=== PATIENT | male | born 1960 ===

== ENCOUNTER → 2017-02-16 | Outpatient (CLI) | payer OTHER ==
--- NOTE | 2017-02-16 17:01 | XR ---
EXAMINATION TYPE: XR elbow complete RT DATE OF EXAM: 02/16/2017 4:57 PM CLINICAL HISTORY: Smashing injury with right elbow pain. TECHNIQUE: Frontal, lateral and oblique images of the right elbow are obtained. COMPARISON: None FINDINGS: There is no acute fracture/dislocation evident in the right elbow. No abnormal fat pad si gns are seen. Some spurring at ulnohumeral articulation is present. The overlying soft tissue appear s unremarkable. IMPRESSION: There is no acute fracture or dislocation in the right elbow.
== END | disposition home or self-care (01) ==
LOC: RADXRMAIN 16:47
PROVIDERS: ATTEND Emergency Medicine
DX: S50.01XA Contusion of right elbow, initial encounter (principal); M70.21 Olecranon bursitis, right elbow

== ENCOUNTER 2017-08-01 22:07 | Emergency (ER) | payer OTHER ==
[2017-08-01 22:12] VITALS: BP 155/78; PULSE 78; RESP 20; TEMP 98.2
--- NOTE | 2017-08-01 22:39 | ED ---
General Adult HPI - General Chief complaint: Skin/Abscess/Foreign Body Stated complaint: Fish hook R hand Time Seen by Provider: 08/01/17 22:20 Source: patient, RN notes reviewed Mode of arrival: ambulatory Limitations: no limitations - History of Present Illness Initial comments: Patient is a 57-year-old male presents emergency room today with a chief complaint of fishhook stuck the right index finger. Patient states tetanus is up-to-date. Denies any other complaints or symptoms. Patient denies any recent fever, chills, shortness of breath, chest pain, back pain, abdominal pain, nausea or vomiting, numbness or tingling, dysuria or hematuria, constipation or diarrhea, headaches or visual changes, or any other complaints. - Related Data Home Medications Medication Instructions Recorded Confirmed Losartan [Cozaar] 50 mg PO DAILY 09/08/16 08/01/17 Previous Rx's Medication Instructions Recorded Amoxicillin/Potassium Clav 1 each PO Q12HR #14 tab 08/01/17 [Augmentin 875-125 Tablet] Allergies Allergy/AdvReac Type Severity Reaction Status Date / Time No Known Allergies Allergy Verified 08/01/17 22:12 Review of Systems ROS Statement: Those systems with pertinent positive or pertinent negative responses have been documented in the HPI. ROS Other: All systems not noted in ROS Statement are negative. Past Medical History Past Medical History: Hypertension History of Any Multi-Drug Resistant Organisms: None Reported Past Surgical History: Tonsillectomy Additional Past Surgical History / Comment(s): cyst removal from back Past Psychological History: No Psychological Hx Reported Smoking Status: Current every day smoker Past Alcohol Use History: None Reported Past Drug Use History: Marijuana General Exam - General Exam Comments Initial Comments: General: The patient is awake and alert, in no distress, and does not appear acutely ill. Eye: Pupils are equal, round and reactive to light, extra-ocular movements are intact. No nystagmus. There is normal conjunctiva bilaterally. No signs of icterus. Ears, nose, mouth and throat: There are moist mucous membranes and no oral lesions. Neck: The neck is supple, there is no tenderness or JVD. Cardiovascular: There is a regular rate and rhythm. No murmur, rub or gallop is appreciated. Respiratory: Lungs are clear to auscultation, respirations are non-labored, breath sounds are equal. No wheezes, stridor, rales, or rhonchi. Musculoskeletal: Normal ROM, no tenderness. Strength 5/5. Sensation intact. Pulses equal bilaterally 2+. Neurological: A&O x 3. CN II-XII intact, There are no obvious motor or sensory deficits. Coordination appears grossly intact. Speech is normal. Skin: [place] stuck to the distal aspect of the second digit of the right hand. Psychiatric: Cooperative, appropriate mood & affect, normal judgment. Limitations: no limitations Course Vital Signs 08/01/17 22:11 Temperature 98.2 F Pulse Rate 78 Respiratory 20 Rate Blood Pressure 155/78 O2 Sat by Pulse 98 Oximetry Procedures - Procedures Initial comment: Patient's right index finger was anesthetized at the proximal phalanx. [place] was removed by pushing barbs through and able to grab and remove the fishhook. Patient tolerated procedure well. Medical Decision Making - Medical Decision Making Patient's tetanus is up-to-date. He will be provided a antibiotic to use for infection. Advised to return for any other concerns. Disposition Clinical Impression: [place] injury to finger Disposition: HOME SELF-CARE Condition: Good Instructions: Puncture Wound (ED) Additional Instructions: Please use antibiotic as prescribed Motrin any signs of infection. Please return to emergency room for any other concerns. Prescriptions: Amoxicillin/Potassium Clav [Augmentin 875-125 Tablet] 1 each PO Q12HR #14 tab Referrals: Ketan Marie MD [Primary Care Provider] - 1-2 days Time of Disposition: 22:41
== END 2017-08-01 22:46 | disposition home or self-care (01) ==
LOC: EC 22:07
DX: S69.91XA Unspecified injury of right wrist, hand and finger(s), initial encounter (principal); I10 Essential (primary) hypertension; F17.200 Nicotine dependence, unspecified, uncomplicated; Z79.899 Other long term (current) drug therapy; W20.8XXA Other cause of strike by thrown, projected or falling object, initial encounter
CPT/HCPCS: 99283

== ENCOUNTER 2018-08-16 19:37 | Emergency (ER) | payer OTHER ==
[2018-08-16 19:54] VITALS: BP 162/89; PULSE 70; RESP 18; TEMP 98.4
[2018-08-16] MEDS ORDERED: HYDROcodone/APAP 5-325MG 1 EACH TAB PO STA (20:16)
[2018-08-16] MEDS ORDERED: ACETAMINOPHEN TAB 325 MG TAB PO STA (20:16)
[2018-08-16] MEDS ORDERED: DEXAMETHASONE 4 MG TAB PO STA (20:16)
[2018-08-16] MEDS ORDERED: KETOROLAC 60 MG/2 ML VIAL IM STA (20:16)
[2018-08-16] MEDS ORDERED: DIAZEPAM 5 MG TAB PO STA (20:16)
--- NOTE | 2018-08-16 20:25 | ED ---
General Adult HPI - General Chief complaint: Back Pain/Injury Stated complaint: back pain Time Seen by Provider: 08/16/18 19:58 Source: patient, RN notes reviewed, old records reviewed Mode of arrival: ambulatory Limitations: no limitations - History of Present Illness Initial comments: This is a 58-year-old male the ER prevention of back pain. No prior history of back pain. Patient did have trauma. Stairs. Significant sprain strain of his back area. Injury happened earlier today coming in the ER today for same evaluation. Patient took no medication prior to coming in. No loss of bowel or bladder no neurological complaint. Patient denies any recent fevers or headaches. - Related Data Home Medications Medication Instructions Recorded Confirmed Acetaminophen Tab [Tylenol Tab] 1,000 mg PO Q6HR PRN 08/16/18 08/16/18 Previous Rx's Medication Instructions Recorded Naproxen [Naprosyn] 500 mg PO Q12HR PRN #30 tab 08/16/18 Allergies Allergy/AdvReac Type Severity Reaction Status Date / Time No Known Allergies Allergy Verified 08/16/18 20:06 Review of Systems ROS Statement: Those systems with pertinent positive or pertinent negative responses have been documented in the HPI. ROS Other: All systems not noted in ROS Statement are negative. Past Medical History Past Medical History: Hypertension History of Any Multi-Drug Resistant Organisms: None Reported Past Surgical History: Tonsillectomy Additional Past Surgical History / Comment(s): cyst removal from back Past Psychological History: No Psychological Hx Reported Smoking Status: Current every day smoker Past Alcohol Use History: None Reported Past Drug Use History: Marijuana General Exam Limitations: no limitations General appearance: alert, in no apparent distress Head exam: Present: atraumatic, normocephalic, normal inspection Eye exam: Present: normal appearance, PERRL, EOMI. Absent: scleral icterus, conjunctival injection, periorbital swelling ENT exam: Present: normal exam, mucous membranes moist Neck exam: Present: normal inspection. Absent: tenderness, meningismus, lymphadenopathy Respiratory exam: Present: normal lung sounds bilaterally. Absent: respiratory distress, wheezes, rales, rhonchi, stridor Cardiovascular Exam: Present: regular rate, normal rhythm, normal heart sounds. Absent: systolic murmur, diastolic murmur, rubs, gallop, clicks GI/Abdominal exam: Present: soft, normal bowel sounds. Absent: distended, tenderness, guarding, rebound, rigid Extremities exam: Present: normal inspection, full ROM, normal capillary refill. Absent: tenderness, pedal edema, joint swelling, calf tenderness Back exam: Present: normal inspection Neurological exam: Present: alert, oriented X3, CN II-XII intact Psychiatric exam: Present: normal affect, normal mood Skin exam: Present: warm, dry, intact, normal color. Absent: rash Course Vital Signs 08/16/18 19:50 Temperature 98.4 F Pulse Rate 70 Respiratory 18 Rate Blood Pressure 162/89 O2 Sat by Pulse 99 Oximetry - Reevaluation(s) Reevaluation #1: Patient's pain is improved and he is able to ambulate Medical Decision Making - Medical Decision Making 58 male the ER for evaluation of acute back pain secondary to lumbar strain secondary to tripping while doing work on the house. Fell while going upstairs. No significant trauma noted. No loss of bowel or bladder neurological complaint. Patient can be discharged home Disposition Clinical Impression: Mechanical back pain, Strain of lumbar region Disposition: HOME SELF-CARE Condition: Good Instructions: Acute Low Back Pain (ED) Prescriptions: Naproxen [Naprosyn] 500 mg PO Q12HR PRN #30 tab PRN Reason: Pain Is patient prescribed a controlled substance at d/c from ED?: No Referrals: Ketan Marie MD [Primary Care Provider] - 1-2 days
[2018-08-16] MEDS ORDERED: ACET/COD 300 MG/30 MG STARTER PACK 6 TAB BTL PO STA (20:27)
== END 2018-08-16 20:39 | disposition home or self-care (01) ==
LOC: EC 19:37
DX: S39.012A Strain of muscle, fascia and tendon of lower back, initial encounter (principal); F17.200 Nicotine dependence, unspecified, uncomplicated; W10.9XXA Fall (on) (from) unspecified stairs and steps, initial encounter; Y93.89 Activity, other specified; Y92.009 Unspecified place in unspecified non-institutional (private) residence as the place of occurrence of the external cause
CPT/HCPCS: 99284; 96372; J8540; J1885

== ENCOUNTER 2019-02-16 20:34 | Emergency (ER) | payer OTHER ==
[2019-02-16 20:43] VITALS: RESP 18
[2019-02-16 21:52] LABS: Basophils # (A) 0.1 k/uL (0-0.2); Basophils % (A) 1 %; Eosinophils # (A) 0.3 k/uL (0-0.7); Eosinophils % (A) 3 %; HCT 43.5 % (39.0-53.0); HGB 14.4 gm/dL (13.0-17.5); Lymphocytes # (A) 1.6 k/uL (1.0-4.8); Lymphocytes % (A) 22 %; MCV 87.9 fL (80.0-100.0); Mean Platelet Volume 6.6; Monocytes # (A) 0.4 k/uL (0-1.0); Monocytes % (A) 5 %; Neutrophils # (A) 5.2 k/uL (1.3-7.7); Neutrophils % (A) 68 %; Platelet Count 259 k/uL (150-450); RBC 4.95 m/uL (4.30-5.90); RDW 13.4 % (11.5-15.5); WBC 7.6 k/uL (3.8-10.6)
[2019-02-16 22:02] LABS: ALT 26 U/L (21-72); AST 26 U/L (17-59); Albumin 4.3 g/dL (3.5-5.0); Alkaline Phosphatase 96 U/L (38-126); Amylase 47 U/L (30-110); Anion Gap 8 mmol/L; Blood Urea Nitrogen 19 mg/dL (9-20); Calcium 9.2 mg/dL (8.4-10.2); Carbon Dioxide 26 mmol/L (22-30); Chloride 106 mmol/L (98-107); Glucose 97 mg/dL (74-99); Lipase 102 U/L (23-300); Potassium 4.3 mmol/L (3.5-5.1); Sodium 140 mmol/L (137-145); Total Bilirubin 0.8 mg/dL (0.2-1.3); Total Protein 6.9 g/dL (6.3-8.2)
[2019-02-16 22:08] LABS: Appearance,Urine Clear (Clear); Bilirubin,Urine Negative (Negative); Blood,Urine Negative (Negative); Color,Urine Yellow; Glucose,Urine (UA) Negative (Negative); Ketones,Urine Negative (Negative); Leukocyte Esterase,Urine Negative (Negative); Nitrite,Urine Negative (Negative); Protein,Urine Negative (Negative); Specific Gravity,Urine 1.041 (1.001-1.035); Urobilinogen,Urine <2.0 mg/dL (<2.0)
--- NOTE | 2019-02-16 23:29 | ED ---
Abdominal Pain HPI - General Source: patient Mode of arrival: ambulatory Limitations: no limitations <Violet Bee - Last Filed: 02/16/19 23:58> <Kenya Sylvester - Last Filed: 02/17/19 02:36> - General Chief Complaint: Abdominal Pain Stated Complaint: R Side Pain Time Seen by Provider: 02/16/19 20:53 - History of Present Illness Initial Comments: 58-year-old male past medical history of hypertension presenting today for chief complaint of right lower quadrant pain. Patient states around 10 AM he began ex periencing right lower quadrant abdominal pain, pt was sitting at home at the time when symptoms began. Patient states he has had similar pain before a few months ago he states it lasted for few hours and then went away. Denies diarrhea or vomiting nausea decreased appetite. He states the pain is sharp in characteristic without radiation. He states it comes and goes. Denies melena or hematochezia he denies fever or chills testicular pain, dysuria urgency frequency, history of hernia or recent abdominal surgeries. He denies a chest pain dyspnea despite exertion. Patient denies any associated symptoms, remaining review of systems negative. Patient denies any alleviating factors. He states it does increase with any of the abdomen. Patient denies any increased pain with ambulation. (Violet Bee) - Related Data Home Medications Medication Instructions Recorded Confirmed Losartan Potassium 100 mg PO DAILY 02/16/19 02/16/19 Allergies Allergy/AdvReac Type Severity Reaction Status Date / Time No Known Allergies Allergy Verified 02/16/19 21:09 Review of Systems ROS Other: All systems not noted in ROS Statement are negative. <Violet Bee - Last Filed: 02/16/19 23:58> ROS Other: All systems not noted in ROS Statement are negative. <Kenya Sylvester - Last Filed: 02/17/19 02:36> ROS Statement: Those systems with pertinent positive or pertinent negative responses have been documented in the HPI. Past Medical History Past Medical History: Hypertension History of Any Multi-Drug Resistant Organisms: None Reported Past Surgical History: Tonsillectomy Additional Past Surgical History / Comment(s): cyst removal from back Past Psychological History: No Psychological Hx Reported Smoking Status: Current every day smoker Past Alcohol Use History: None Reported Past Drug Use History: Marijuana <Violet Bee - Last Filed: 02/16/19 23:58> General Exam Limitations: no limitations <Yoanna Beehan Sander - Last Filed: 02/16/19 23:58> - General Exam Comments Initial Comments: General: The patient is awake and alert, in no distress, and does not appear acutely ill. Eye: Pupils are equal, round and reactive to light, extra-ocular movements are intact. No nystagmus. There is normal conjunctiva bilaterally. No signs of icterus. Ears, nose, mouth and throat: There are moist mucous membranes and no oral lesions. Neck: The neck is supple, there is no tenderness or JVD. Cardiovascular: There is a regular rate and rhythm. No murmur, rub or gallop is appreciated. Respiratory: Lungs are clear to auscultation, respirations are non-labored, breath sounds are equal. No wheezes, stridor, rales, or rhonchi. Gastrointestinal: No noted diaphoresis, jaundice, pallor, protecting postures or squirming. Symmetrical pigmentation of abdomen without signs of inflammation. Umbilicus mildline, inverted without swelling. No dilated veins. Abdomen contour obese, no noted abdominal distention. No visible masses. No peristalsis, aortic pulsations, or ventral hernia. Bowel sounds audible in all 4 quadrants, unremarkable. No friction rubs or venous hums. No epigastic, hepatic or abdominal bruits. Mild tenderness to the patient the right lower quadrant. Remaining abdomen nontender to both light and deep palpation.. Liver edge, not palpable. Spleen edge, right and left kidney not palpable. Superior bladder margin non-tender. Special Testing: Negative Zoe, Rovsing, McBurney, Jeannine, cutaneous hyperesthesia. Iliopsoas and obturator tests negative bilaterally. Negative Heel Jar test. No CVA tenderness. Digital rectal exam deferred. Negative clemente turners or cullens sign Musculoskeletal: Normal ROM, no tenderness. Strength 5/5. Sensation intact. Pulses equal bilaterally 2+. Neurological: A&O x 3. CN II-XII intact, There are no obvious motor or sensory deficits. Coordination appears grossly intact. Speech is normal. Skin: Skin is warm and dry and no rashes or lesions are noted. Psychiatric: Cooperative, appropriate mood & affect, normal judgment. (Violet Bee) Course <Violet Bee - Last Filed: 02/16/19 23:58> Vital Signs 02/16/19 02/16/19 02/16/19 20:40 22:16 23:43 Temperature 98.5 F 98 F Pulse Rate 70 75 66 Respiratory 18 18 18 Rate Blood Pressure 158/85 151/94 150/91 O2 Sat by Pulse 96 98 97 Oximetry - Reevaluation(s) Reevaluation #1: Upon reevaluation patient has no RLQ pain, resolved. 02/16/19 23:28 (Violet Bee) Medical Decision Making - Lab Data Result diagrams: 02/16/19 21:42 02/16/19 21:42 <Violet Bee - Last Filed: 02/16/19 23:58> - Lab Data Result diagrams: 02/16/19 21:42 02/16/19 21:42 <Kenya Sylvester - Last Filed: 02/17/19 02:36> - Medical Decision Making Appearing 58-year-old male presented for right lower quadrant abdominal pain. Patient has multiple facial right lower quadrant. Patient denies any associated symptoms. No rigidity guarding. Given patient's age and location of pain concern for possible diverticulosis. CT was obtained revealing no acute intra- abdominal process at this time. There was noted umbilical hernia however there is no point tenderness upon abdominal exam in this location. Laboratory studies unremarkable within normal limits. Patient's vital signs within acceptable limits. Patient states upon reevaluation that pain has resolved. At this time I do feel patient stay for discharge with return parameters for any worsening or concerning symptoms. I discussed case attending provider Dr. Sylvester was agreeable patient's plan of care and discharge. Patient denies questions at this time. Appeared well on discharge ambulating without difficulty no signs of discomfort distress. (Violet Bee) I was available for consultation in the emergency department. The history and physical exam were done by the midlevel provider. I was consulted for this patient's care. I reviewed the case with the midlevel provider and based on their presentation of the patient, I agree with the assessment, medical decision making and plan of care as documented. (Kenya Sylvester) - Lab Data Lab Results 02/16/19 02/16/19 02/16/19 Range/Units 21:42 21:42 21:58 WBC 7.6 (3.8-10.6) k/uL RBC 4.95 (4.30-5.90) m/uL Hgb 14.4 (13.0-17.5) gm/dL Hct 43.5 (39.0-53.0) % MCV 87.9 (80.0-100.0) fL MCH 29.0 (25.0-35.0) pg MCHC 33.0 (31.0-37.0) g/dL RDW 13.4 (11.5-15.5) % Plt Count 259 (150-450) k/uL Neutrophils % 68 % Lymphocytes % 22 % Monocytes % 5 % Eosinophils % 3 % Basophils % 1 % Neutrophils # 5.2 (1.3-7.7) k/uL Lymphocytes # 1.6 (1.0-4.8) k/uL Monocytes # 0.4 (0-1.0) k/uL Eosinophils # 0.3 (0-0.7) k/uL Basophils # 0.1 (0-0.2) k/uL Sodium 140 (137-145) mmol/L Potassium 4.3 (3.5-5.1) mmol/L Chloride 106 (98-107) mmol/L Carbon Dioxide 26 (22-30) mmol/L Anion Gap 8 mmol/L BUN 19 (9-20) mg/dL Creatinine 0.82 (0.66-1.25) mg/dL Est GFR (CKD-EPI)AfAm >90 (>60 ml/min/1.73 sqM) Est GFR (CKD-EPI)NonAf >90 (>60 ml/min/1.73 sqM) Glucose 97 (74-99) mg/dL Calcium 9.2 (8.4-10.2) mg/dL Total Bilirubin 0.8 (0.2-1.3) mg/dL AST 26 (17-59) U/L ALT 26 (21-72) U/L Alkaline Phosphatase 96 (38-126) U/L Total Protein 6.9 (6.3-8.2) g/dL Albumin 4.3 (3.5-5.0) g/dL Amylase 47 (30-110) U/L Lipase 102 (23-300) U/L Urine Color Yellow Urine Appearance Clear (Clear) Urine pH 6.0 (5.0-8.0) Ur Specific [place] 1.041 H (1.001-1.035) Urine Protein Negative (Negative) Urine Glucose (UA) Negative (Negative) Urine Ketones Negative (Negative) Urine Blood Negative (Negative) Urine Nitrite Negative (Negative) Urine Bilirubin Negative (Negative) Urine Urobilinogen <2.0 (<2.0) mg/dL Ur Leukocyte Esterase Negative (Negative) Disposition Is patient prescribed a controlled substance at d/c from ED?: No Time of Disposition: 23:29 <Violet Bee - Last Filed: 02/16/19 23:58> <Kenya Sylvester P - Last Filed: 02/17/19 02:36> Clinical Impression: Abdominal pain Disposition: HOME SELF-CARE Condition: Good Instructions (If sedation given, give patient instructions): Abdominal Pain (ED) Additional Instructions: Please use medication as discussed. Please follow-up with family doctor in the next 2 days of symptoms have not improved. Please return to emergency room if the symptoms increase or worsen or for any other concerns. Referrals: Ketan Marie MD [Primary Care Provider] - 1-2 days
[2019-02-16 23:44] VITALS: BP 150/91; PULSE 66; TEMP 98
--- NOTE | 2019-02-17 00:44 | CT ---
EXAMINATION TYPE: CT abdomen pelvis w con DATE OF EXAM: 02/16/2019 COMPARISON: None HISTORY: Abdominal pain CT DLP: mGycm Automated exposure control for dose reduction was used. TECHNIQUE: Helical acquisition of images was performed from the lung bases through the pelvis. CONTRAST: The contrast was Isovue 100 mL.. FINDINGS: Lung bases are clear. There is no pleural effusion. Heart size is normal. Liver spleen pancreas gallb ladder stomach appear normal. Bile ducts are not dilated. There is no adrenal mass. Kidneys show sati sfactory contrast opacification. There is no hydronephrosis. There is no retroperitoneal adenopathy. Bladder distends smoothly. There is minimal prostate calcification. There is no inguinal hernia. Ther e is no free fluid in the pelvis. There is no mesenteric edema. There is no free air or ascites. The appendix appears normal. I see no evidence of a bowel obstruction. Lumbar spine is intact. There is no bony destructive process. There is minimal atheromatous change in the abdominal aorta. IMPRESSION: NEGATIVE CT SCAN ABDOMEN AND PELVIS.
== END 2019-02-16 23:43 | disposition home or self-care (01) ==
LOC: EC 20:34
DX: K42.9 Umbilical hernia without obstruction or gangrene (principal); I10 Essential (primary) hypertension; F17.200 Nicotine dependence, unspecified, uncomplicated; Z79.899 Other long term (current) drug therapy
CPT/HCPCS: 36415; 80053; 82150; 83690; 85025; 81003; 74177; 99284; Q9967

== ENCOUNTER 2019-07-25 18:01 | Emergency (ER) | payer OTHER ==
[2019-07-25 18:05] VITALS: RESP 18
[2019-07-25] MEDS ORDERED: SODIUM CHLORIDE 0.9% 1,000 ML IV STA (18:30)
--- NOTE | 2019-07-25 18:55 | ED ---
General Adult HPI - General Chief complaint: Recheck/Abnormal Lab/Rx Stated complaint: Coughing up blood, syncope Time Seen by Provider: 07/25/19 18:19 Source: patient Mode of arrival: ambulatory Limitations: no limitations - History of Present Illness Initial comments: 59-year-old male patient presents to the emergency department today for evaluation after coughing up blood this afternoon. Patient states that earlier today he had a coughing episode. It was productive and contained streaks of blood. He denied any shortness of breath or chest pain with this. Denies history of hemoptysis. States that he has a chronic cough from smoking. Patient states that yesterday he was riding his bike, when he went to get off he felt very dizzy and nearly passed out. States these cluster of symptoms concerned him and he presented here for evaluation. Patient states the bleeding has stopped. States otherwise he feels well. Patient denies any recent rash, fever, chills, abdominal pain, nausea, vomiting, diarrhea, constipation, back pain, numbness, tingling, dizziness, weakness, hematuria, dysuria, urinary urgency, urinary frequency, headache, visual changes, or any other complaints. He denies any recent long car rides, history of blood clots, or leg pain or swelling. - Related Data Home Medications Medication Instructions Recorded Confirmed Losartan Potassium 100 mg PO DAILY 02/16/19 07/25/19 Aspirin EC [Ecotrin Low Dose] 81 mg PO DAILY 07/25/19 07/25/19 Allergies Allergy/AdvReac Type Severity Reaction Status Date / Time No Known Allergies Allergy Verified 07/25/19 18:40 Review of Systems ROS Statement: Those systems with pertinent positive or pertinent negative responses have been documented in the HPI. ROS Other: All systems not noted in ROS Statement are negative. Past Medical History Past Medical History: Hypertension History of Any Multi-Drug Resistant Organisms: None Reported Past Surgical History: Tonsillectomy Additional Past Surgical History / Comment(s): cyst removal from back Past Psychological History: No Psychological Hx Reported Smoking Status: Current every day smoker Past Alcohol Use History: None Reported Past Drug Use History: Marijuana General Exam Limitations: no limitations General appearance: alert, in no apparent distress, other (This is a well- developed, well-nourished adult male patient in no acute distress. Vital signs upon presentation are temperature 98.3F, pulse 74, respirations 18, blood pressure 155/95, pulse ox 99% on room air.) Eye exam: Present: normal appearance, PERRL, EOMI. Absent: scleral icterus, conjunctival injection, periorbital swelling ENT exam: Present: normal exam, normal oropharynx, mucous membranes moist Respiratory exam: Present: normal lung sounds bilaterally. Absent: respiratory distress, wheezes, rales, rhonchi, stridor Cardiovascular Exam: Present: regular rate, normal rhythm, normal heart sounds. Absent: systolic murmur, diastolic murmur, rubs, gallop, clicks GI/Abdominal exam: Present: soft, normal bowel sounds. Absent: distended, tenderness, guarding, rebound, rigid Neurological exam: Present: alert, oriented X3, CN II-XII intact Psychiatric exam: Present: normal affect, normal mood Skin exam: Present: warm, dry, intact, normal color. Absent: rash Course Vital Signs 07/25/19 07/25/19 18:03 20:50 Temperature 98.3 F 97.8 F Pulse Rate 74 66 Respiratory 18 18 Rate Blood Pressure 155/95 172/96 O2 Sat by Pulse 99 97 Oximetry EKG Findings - EKG Comments: EKG Findings:: EKG obtained at 1920 shows sinus bradycardia with a ventricular rate of 53, W[place] interval 144, QRS duration 98, QT 426, QTC 399. No evidence of ST elevation or depression. Medical Decision Making - Medical Decision Making 59-year-old male patient presents to the emergency department today for evaluation after having an episode of hemoptysis today and a near syncopal ep isode yesterday. Physical examination is unremarkable. Lungs are clear to auscultation with good air movement. Vital signs are within normal ranges. Labs reviewed and are unremarkable. D-dimer is negative. Chest x-ray shows no acute cardiopulmonary process. I did discuss findings and results with the patient. He is currently feeling well. He does feel comfortable being discharged home. He is instructed to follow-up with his primary care physician for recheck in 1-2 days. Return parameters were discussed in detail. He verbalizes understanding and agrees with this plan. - Lab Data Result diagrams: 07/25/19 18:47 07/25/19 18:47 Lab Results 07/25/19 07/25/19 07/25/19 Range/Units 18:47 18:47 18:47 WBC 8.5 (3.8-10.6) k/uL RBC 5.15 (4.30-5.90) m/uL Hgb 15.2 (13.0-17.5) gm/dL Hct 45.6 (39.0-53.0) % MCV 88.5 (80.0-100.0) fL MCH 29.5 (25.0-35.0) pg MCHC 33.3 (31.0-37.0) g/dL RDW 13.4 (11.5-15.5) % Plt Count 255 (150-450) k/uL Neutrophils % 67 % Lymphocytes % 22 % Monocytes % 7 % Eosinophils % 2 % Basophils % 1 % Neutrophils # 5.7 (1.3-7.7) k/uL Lymphocytes # 1.9 (1.0-4.8) k/uL Monocytes # 0.6 (0-1.0) k/uL Eosinophils # 0.2 (0-0.7) k/uL Basophils # 0.1 (0-0.2) k/uL PT 9.8 (9.0-12.0) sec INR 0.9 (<1.2) APTT 27.3 (22.0-30.0) sec D-Dimer 0.51 (<0.60) mg/L FEU Sodium 140 (137-145) mmol/L Potassium 4.4 (3.5-5.1) mmol/L Chloride 103 (98-107) mmol/L Carbon Dioxide 28 (22-30) mmol/L Anion Gap 9 mmol/L BUN 19 (9-20) mg/dL Creatinine 0.93 (0.66-1.25) mg/dL Est GFR (CKD-EPI)AfAm >90 (>60 ml/min/1.73 sqM) Est GFR (CKD-EPI)NonAf 89 (>60 ml/min/1.73 sqM) Glucose 101 H (74-99) mg/dL Calcium 9.7 (8.4-10.2) mg/dL Total Bilirubin 0.8 (0.2-1.3) mg/dL AST 27 (17-59) U/L ALT 23 (21-72) U/L Alkaline Phosphatase 95 (38-126) U/L Troponin I (0.000-0.034) ng/mL Total Protein 7.5 (6.3-8.2) g/dL Albumin 4.6 (3.5-5.0) g/dL 07/25/19 Range/Units 18:47 WBC (3.8-10.6) k/uL RBC (4.30-5.90) m/uL Hgb (13.0-17.5) gm/dL Hct (39.0-53.0) % MCV (80.0-100.0) fL MCH (25.0-35.0) pg MCHC (31.0-37.0) g/dL RDW (11.5-15.5) % Plt Count (150-450) k/uL Neutrophils % % Lymphocytes % % Monocytes % % Eosinophils % % Basophils % % Neutrophils # (1.3-7.7) k/uL Lymphocytes # (1.0-4.8) k/uL Monocytes # (0-1.0) k/uL Eosinophils # (0-0.7) k/uL Basophils # (0-0.2) k/uL PT (9.0-12.0) sec INR (<1.2) APTT (22.0-30.0) sec D-Dimer (<0.60) mg/L FEU Sodium (137-145) mmol/L Potassium (3.5-5.1) mmol/L Chloride (98-107) mmol/L Carbon Dioxide (22-30) mmol/L Anion Gap mmol/L BUN (9-20) mg/dL Creatinine (0.66-1.25) mg/dL Est GFR (CKD-EPI)AfAm (>60 ml/min/1.73 sqM) Est GFR (CKD-EPI)NonAf (>60 ml/min/1.73 sqM) Glucose (74-99) mg/dL Calcium (8.4-10.2) mg/dL Total Bilirubin (0.2-1.3) mg/dL AST (17-59) U/L ALT (21-72) U/L Alkaline Phosphatase (38-126) U/L Troponin I <0.012 (0.000-0.034) ng/mL Total Protein (6.3-8.2) g/dL Albumin (3.5-5.0) g/dL - Radiology Data Radiology results: report reviewed, image reviewed Two-view x-ray of the chest is obtained. Report was reviewed in its entirety. Impression by Dr. Vazquez shows no acute radiographic process. Disposition Clinical Impression: Hemoptysis, Near syncope Disposition: HOME SELF-CARE Condition: Good Instructions (If sedation given, give patient instructions): Hemoptysis (ED), Near Syncope (ED) Additional Instructions: Increase fluids. Rest. Follow-up she primary care physician for recheck in 1-2 days. Return to the emergency department immediately for any new, worsening, or concerning symptoms. Is patient prescribed a controlled substance at d/c from ED?: No Referrals: Ketan Marie MD [Primary Care Provider] - 1-2 days Time of Disposition: 20:23
[2019-07-25 18:56] LABS: Basophils # (A) 0.1 k/uL (0-0.2); Basophils % (A) 1 %; Eosinophils # (A) 0.2 k/uL (0-0.7); Eosinophils % (A) 2 %; HCT 45.6 % (39.0-53.0); HGB 15.2 gm/dL (13.0-17.5); Lymphocytes # (A) 1.9 k/uL (1.0-4.8); Lymphocytes % (A) 22 %; MCH 29.5 pg (25.0-35.0); MCHC 33.3 g/dL (31.0-37.0); MCV 88.5 fL (80.0-100.0); Mean Platelet Volume 6.6; Monocytes # (A) 0.6 k/uL (0-1.0); Monocytes % (A) 7 %; Neutrophils # (A) 5.7 k/uL (1.3-7.7); Neutrophils % (A) 67 %; Platelet Count 255 k/uL (150-450); RBC 5.15 m/uL (4.30-5.90); RDW 13.4 % (11.5-15.5); WBC 8.5 k/uL (3.8-10.6)
[2019-07-25 19:04] LABS: ALT 23 U/L (21-72); AST 27 U/L (17-59); African American GFR (CKD) >90 (>60 ml/min/1.73 sqM); Albumin 4.6 g/dL (3.5-5.0); Alkaline Phosphatase 95 U/L (38-126); Anion Gap 9 mmol/L; Blood Urea Nitrogen 19 mg/dL (9-20); Calcium 9.7 mg/dL (8.4-10.2); Carbon Dioxide 28 mmol/L (22-30); Chloride 103 mmol/L (98-107); Glucose 101 mg/dL (74-99); Potassium 4.4 mmol/L (3.5-5.1); Sodium 140 mmol/L (137-145); Total Bilirubin 0.8 mg/dL (0.2-1.3); Total Protein 7.5 g/dL (6.3-8.2)
[2019-07-25 19:13] LABS: D-Dimer 0.51 mg/L FEU (<0.60); INR 0.9 (<1.2); Partial Thromboplastin Time 27.3 sec (22.0-30.0); Prothrombin Time 9.8 sec (9.0-12.0)
--- NOTE | 2019-07-25 19:49 | XR ---
EXAMINATION: XR chest 2V DATE AND TIME: 07/25/2019 6:59 PM CLINICAL INDICATION: Hemoptysis; difficulty breathing TECHNIQUE: Departmental protocol COMPARISON: 09/08/2016 FINDINGS: The lungs are clear. The pleural spaces are negative. The cardiac silhouette is not enlarged. The remainder of the mediastinal silhouette is unremarkable. The skeletal structures and soft tissues are negative for acute findings. IMPRESSION: No acute radiographic process.
[2019-07-25 20:50] VITALS: BP 172/96; PULSE 66; TEMP 97.8
== END 2019-07-25 20:50 | disposition home or self-care (01) ==
LOC: EC 18:01
DX: R55 Syncope and collapse (principal); R04.2 Hemoptysis; I10 Essential (primary) hypertension; F17.200 Nicotine dependence, unspecified, uncomplicated; Z79.82 Long term (current) use of aspirin; Z79.899 Other long term (current) drug therapy
CPT/HCPCS: 36415; 71046; 80053; 84484; 85025; 85379; 85610; 85730; 93005; 96360; 96361; 99284

== ENCOUNTER → 2019-08-01 | Outpatient (CLI) | payer OTHER ==
[2019-08-01 17:59] LABS: Chol/HDL Ratio 5.78
[2019-08-01 21:20] LABS: Hemoglobin A1C 5.6 % (4.0-6.0)
== END | disposition home or self-care (01) ==
LOC: LABWHC1 08:42
PROVIDERS: ATTEND Family Medicine
DX: Z00.00 Encounter for general adult medical examination without abnormal findings (principal); Z12.5 Encounter for screening for malignant neoplasm of prostate
CPT/HCPCS: 80061; 83036; 36415; G0103

== ENCOUNTER → 2019-08-15 | Outpatient (CLI) | payer OTHER ==
--- NOTE | 2019-08-15 10:07 | US ---
EXAMINATION TYPE: US carotid duplex BILAT DATE OF EXAM: 08/15/2019 COMPARISON: NONE CLINICAL HISTORY: R00.2 Palpitations, R55 Syncope. Syncope EXAM MEASUREMENTS: RIGHT: Peak Systolic Velocity (PSV) cm/sec ----- Right CCA: 77.8 ----- Right ICA: 93.0 ----- Right ECA: 168.8 ICA/CCA ratio: 1.2 RIGHT: End Diastole cm/sec ----- Right CCA: 27.3 ----- Right ICA: 36.1 ----- Right ECA: 36.7 LEFT: Peak Systolic Velocity (PSV) cm/sec ----- Left CCA: 91.9 ----- Left ICA: 95.8 ----- Left ECA: 131.9 ICA/CCA ratio: 1.0 LEFT: End Diastole cm/sec ----- Left CCA: 34.7 ----- Left ICA: 38.6 ----- Left ECA: 43.0 VERTEBRALS (direction of flow): Right Vertebral: Antegrade Left Vertebral: Antegrade Rhythm: Normal Elevated velocities in bilateral ECA. IMPRESSION: Mild degree of grayscale atheromatous plaquing with no sonographically evident hemodynam ically significant stenosis within either visualized internal nor common carotid arterial system. Inc identally noted elevated peak systolic velocity within the external carotid arteries, likely related to mild stenosis of approximately 50-69%. Criteria for Assigning % of Stenosis / Diameter reduction (Estimation based on the indirect measurements of the internal carotid artery velocities (ICA PSV). 1. Normal (no stenosis)=ICA PSV < 125 cm/s: ratio < 2.0: ICA EDV<40 cm/s. 2. Less than 50% stenosis=ICA PSV < 125 cm/s: ratio < 2.0: ICA EDV<40 cm/s. 3. 50 to 69% stenosis=ICA PSV of 125 to 230 cm/s: ration 2.0 ? 4.0: ICA EDV 40-100 cm/s. 4. Greater than 70% stenosis to near occlusion= ICA PSV > 230 cm/s: ratio > 4.0: ICA EDV > 100 cm/s. 5. Near occlusion= ICA PSV velocities may be low or undetectable: variable ratio and ICA EDV. 6. Total occlusion=unable to detect flow.
--- NOTE | 2019-08-15 12:36 | ECHOS ---
STRESS ECHOCARDIOGRAM DATE OF SERVICE: 08/15/2019 INDICATIONS: Vertigo MEDICATIONS: BASELINE HEART RATE: 52 BASELINE BLOOD PRESSURE: 152/56 MAXIMUM HEART RATE: 150 MAXIMUM BLOOD PRESSURE: 135/92 85% MPHR: 136 100% MPHR: 160 METS: 9.5 MAXIMUM STAGE REACHED: III TOTAL EXERCISE TIME: 8 minutes 9 seconds CLINICAL INFORMATION: Baseline rhythm is sinus mechanism, rate of 52, normal axis and intervals. Normal electrocardiogram. Baseline blood pressure 152/56 mmHg. The patient exercised on Thomas protocol for 8 minutes 9 seconds, reaching a peak rate of 150 beats per minute which is equal to 94% maximum predicted heart rate. Peak blood pressure 135/92 mmHg. Test was terminated secondary to fatigue. There was no chest pain. Electrocardiograph monitoring revealed no evidence of diagnostic ischemic ST deviation. Baseline echocardiogram revealed normal wall thickening and motion. At peak exercise, there was normal wall motion augmentation with no dyskinesis or hypokinesis. CONCLUSION: 1. Average exercise tolerance with normal electrocardiograph response to exercise. 2. Normal stress echocardiogram with no evidence of stress induced ischemia. MMODL / IJN: [id number] /
== END | disposition home or self-care (01) ==
LOC: RADUSMAIN 08:57
PROVIDERS: ATTEND Family Medicine
DX: I65.23 Occlusion and stenosis of bilateral carotid arteries (principal); R00.2 Palpitations
CPT/HCPCS: 93351; 93880; Q9950

== ENCOUNTER → 2019-08-18 | Outpatient (CLI) | payer OTHER ==
--- NOTE | 2019-08-18 16:25 | MR ---
EXAMINATION TYPE: MR brain wo/w con DATE OF EXAM: 08/18/2019 COMPARISON: None HISTORY: Syncope and collapse CONTRAST: Performed utilizing 9.5 mL intravenous Gadavist gadolinium contrast. TECHNIQUE: Multiplanar, multiecho imaging on a 3.0 Andreea magnet is performed through the brain. Stud y is performed within 24 hours of arrival to the hospital. The craniovertebral junction is normal. The pituitary is normal. Diffusion-weighted imaging is performed. No abnormal hyperintensity is present to suggest an acute i ntracranial infarct or acute ischemic change. There are numerous subcortical white matter changes present bilaterally. Findings are nonspecific. Co rrelate for migraine headaches, multiple sclerosis, Lyme disease, vasculitis among other etiologies. Ventricles and sulci are appropriate for the patient age. IMPRESSIONS: 1. Numerous subcortical white matter changes present bilaterally. Consider multiple sclerosis and vas culitis primary within the differential. Consider additional workup.
== END | disposition home or self-care (01) ==
LOC: RADMRIMAIN 15:38
PROVIDERS: ATTEND Family Medicine
DX: R90.89 Other abnormal findings on diagnostic imaging of central nervous system (principal); G35 Multiple sclerosis; I67.7 Cerebral arteritis, not elsewhere classified
CPT/HCPCS: 70553; A9585

== ENCOUNTER 2019-09-21 14:10 | Emergency (ER) | payer OTHER ==
[2019-09-21 14:14] VITALS: RESP 22; TEMP 97.5
[2019-09-21] MEDS ORDERED: ACETAMINOPHEN TAB 325 MG TAB PO STA (14:27)
[2019-09-21] MEDS ORDERED: AZITHROMYCIN 500 MG TAB PO STA (14:30)
[2019-09-21] MEDS ORDERED: FLUTICASONE 50MCG/SPRAY NASAL 16GM EA NOSTRIL STA (14:46)
--- NOTE | 2019-09-21 14:49 | ED ---
General Adult HPI - General Chief complaint: Upper Respiratory Infection Stated complaint: headache/congestion Time Seen by Provider: 09/21/19 14:15 Source: patient, RN notes reviewed, old records reviewed Mode of arrival: ambulatory Limitations: no limitations - History of Present Illness Initial comments: 59-year-old male patient past history significant for hypertension, COPD presents ED chief complaint of 2 days of waxing and waning fevers chills, cough which was initially nonproductive however is not producing yellow mucus. Patient reports that others at work are having similar symptoms. Patient also reports that he has had waxing and waning frontal lobe headaches, feels as if his ears are plugged, sinus congestion. Denies worst headache of life, denies thunderclap, denies chest pain. Systemic: Pt denies fatigue, fever/chills, rash. Pt denies weakness, night sweats, weight loss. Neuro: Pt denies headache, visual disturbances, syncope or pre-syncope. HEENT: Pt denies ocular discharge or irritation, otalgia, rhinorrhea, pharyngitis or notable lymphadenopathy. Cardiopulmonary: Pt denies heart palpitations, dyspnea on exertion. Abdominal/GI: Pt denies abdominal pain, n/v/d. : Pt denies dysuria, burning w/ urination, frequency/urgency. Denies new onset urinary or bowel incontinence. MSK: Pt denies myalgia, loss of strength or function in extremities. Neuro: Pt denies new onset weakness, paresthesias. - Related Data Home Medications Medication Instructions Recorded Confirmed Losartan Potassium 100 mg PO DAILY 02/16/19 09/21/19 Aspirin EC [Ecotrin Low Dose] 81 mg PO DAILY 07/25/19 09/21/19 Hydrochlorothiazide 25 mg PO DAILY 09/21/19 09/21/19 Previous Rx's Medication Instructions Recorded Azithromycin [Zithromax Z-pack] 0 mg PO DIRECTED #6 tab 09/21/19 Allergies Allergy/AdvReac Type Severity Reaction Status Date / Time No Known Allergies Allergy Verified 09/21/19 14:46 Review of Systems ROS Statement: Those systems with pertinent positive or pertinent negative responses have been documented in the HPI. ROS Other: All systems not noted in ROS Statement are negative. Past Medical History Past Medical History: Hypertension History of Any Multi-Drug Resistant Organisms: None Reported Past Surgical History: Tonsillectomy Additional Past Surgical History / Comment(s): cyst removal from back Past Psychological History: No Psychological Hx Reported Smoking Status: Current every day smoker Past Alcohol Use History: None Reported Past Drug Use History: Marijuana General Exam - General Exam Comments Initial Comments: Constitutional: NAD, AOX3, Pt has pleasant affect. HEENT: NC/AT, trachea midline, neck supple, no lymphadenopathy. Posterior pharynx non erythematous, without exudates. External ears appear normal, without discharge. TM pale euceda bilaterally. Mucous membranes moist. Eyes PERRLA, EOM intact. There is no scleral icterus. No pallor noted. Cardiopulmonary: RRR, no murmurs, rubs or gallops, no JVD noted. Lungs CTAB in anterior and posterior black. No peripheral edema. Abdominal exam: Abdomen soft and non-distended. Abdomen non-tender to palpation in all 4 quadrants. Bowel sounds active in LLQ. No hepatosplenomegaly. No ecchymosis Neuro: CN II-XII intact. No nuchal rigidity. No raccon eyes, no benoit sign, no hemotympanum. No cervical spinal tenderness. MSK: No posterior calf tenderness bilaterally, homans sign negative bilaterally. Posterior tibialis and radial pulse +2 bilaterally. Sensation intact in upper and lower extremities. Full active ROM in upper and lower extremities, 5/5 stregnth. Limitations: no limitations Course Vital Signs 09/21/19 14:12 Temperature 97.5 F L Pulse Rate 73 Respiratory 22 Rate Blood Pressure 151/97 O2 Sat by Pulse 97 Oximetry Medical Decision Making - Medical Decision Making 59-year-old male patient past history significant for hypertension, COPD presents ED chief complaint of 2 days of waxing and waning fevers chills, cough which was initially nonproductive however is not producing yellow mucus. Patient reports that others at work are having similar symptoms. Patient also reports that he has had waxing and waning frontal lobe headaches, feels as if his ears are plugged, sinus congestion. Denies worst headache of life, denies thunderclap, denies chest pain. Patient vital signs stable, afebrile. Physical exam did not display acute pathology. Chest x-ray is negative. Influenza is negative. He to change in sputum, patient discharged with azithromycin. Patient discharged with Flonase. Patient will follow-up with primary care provider will return to ER if condition worsens. Case discussed with Dr. Vega. - Lab Data Lab Results 09/21/19 Range/Units 14:48 Influenza Type A RNA Not Detected (Not Detectd) Influenza Type B (PCR) Not Detected (Not Detectd) Disposition Clinical Impression: Cough, Viral syndrome Disposition: HOME SELF-CARE Condition: Stable Instructions (If sedation given, give patient instructions): Viral Syndrome (ED) Additional Instructions: Patient to adhere to previously discussed treatment plan and will take medication(s) as directed. Patient to follow up with PCP in 1-2 days. Patient to return to ED if symptoms do not improve. Take antibiotics as directed. Return to ER if condition worsens. Prescriptions: Azithromycin [Zithromax Z-pack] 0 mg PO DIRECTED #6 tab Is patient prescribed a controlled substance at d/c from ED?: No Referrals: Ketan Marie MD [Primary Care Provider] - 1-2 days
--- NOTE | 2019-09-21 14:56 | XR ---
EXAMINATION TYPE: XR chest 2V DATE OF EXAM: 09/21/2019 COMPARISON: 07/25/2019 HISTORY: 59-year-old male with cough TECHNIQUE: PA and lateral views FINDINGS: The cardiomediastinal silhouette, aorta, and pulmonary vasculature are within normal limits. Lungs an d pleural spaces are clear. Mild hyperinflation may relate to depth of inspiration. IMPRESSION: No acute cardiopulmonary process. Mild hyperinflation may relate to depth of inspiration or underlyin g emphysema.
[2019-09-21 15:41] VITALS: BP 142/87; PULSE 76
== END 2019-09-21 15:50 | disposition home or self-care (01) ==
LOC: EC 14:10
DX: B34.9 Viral infection, unspecified (principal); I10 Essential (primary) hypertension; F17.200 Nicotine dependence, unspecified, uncomplicated; Z79.82 Long term (current) use of aspirin; Z79.899 Other long term (current) drug therapy
CPT/HCPCS: 71046; 87502; 99284

== ENCOUNTER → 2020-09-04 | Outpatient (CLI) | payer BC ==
--- NOTE | 2020-09-04 17:09 | US ---
EXAMINATION TYPE: US thyroid st tissue head/neck DATE OF EXAM: 09/04/2020 COMPARISON: NONE CLINICAL HISTORY: E03.9 hypothyroidism. Hypothyroidism GLAND SIZE: Right Lobe: 4.5 x 1.8 x 1.9 cm Overall Parenchyma: heterogenous Left Lobe: 4.1 x 1.9 x 1.4 cm Overall Parenchyma: heterogeneous Isthmus Thickness: 0.2 cm NODULES RIGHT: # of nodules measured on right: 0 LEFT: # of nodules measured on left: 1 1. 0.9 X 0.9 x 0.8 cm hypoechoic solid nodule at the lower pole with well-defined margins. This nod ule is taller than wide and shows intranodular vascularity. No echogenic foci. Prior size: no previous ISTHMUS: # of nodules measured in the isthmus: 0 Bilateral neck scanned, no evidence of lymphadenopathy. IMPRESSION: 1. Diffusely heterogenous thyroid gland. 2. Left thyroid TI-RADS 4 nodule measures up to 0.9 cm, which does not meet size criteria for follow- up.
== END | disposition home or self-care (01) ==
LOC: RADUSWWP 10:08
PROVIDERS: ATTEND Family Medicine
DX: E04.1 Nontoxic single thyroid nodule (principal); R93.89 Abnormal findings on diagnostic imaging of other specified body structures
CPT/HCPCS: 76536

== ENCOUNTER → 2020-10-28 | Outpatient (CLI) | payer BC | END | disposition home or self-care (01) | LOC: LABWHC1 16:04 | PROVIDERS: ATTEND Emergency Medicine | DX: Z20.828 Contact with and (suspected) exposure to other viral communicable diseases (principal) | CPT/HCPCS: U0003; C9803 ==

== ENCOUNTER → 2021-10-30 | Outpatient (CLI) | payer BC, OTHER ==
--- NOTE | 2021-10-31 08:19 | US ---
EXAMINATION TYPE: US thyroid st tissue head/neck DATE OF EXAM: 10/30/2021 COMPARISON: US 2019 CLINICAL HISTORY: E04.1 SINGLE THYROID NODULE. GLAND SIZE: Right Lobe: 4.1 x 2.0 x 1.9 cm Overall Parenchyma: heterogenous Left Lobe: 3.7 x 2.1 x 1.2 cm Overall Parenchyma: heterogeneous Isthmus Thickness: 0.5 cm NODULES RIGHT: # of nodules measured on right: 0 LEFT: # of nodules measured on left: 1 1. 0.7 X 0.8 x 0.8 cm, lower mid, solid or almost completely solid, hypoechoic nodule, which is wid er than tall, with smooth margins, without echogenic foci. Prior size: 0.9 x 0.9 x 0.8 cm ISTHMUS: # of nodules measured in the isthmus: 0 Bilateral neck scanned, no evidence of lymphadenopathy. IMPRESSION: 1. Moderately suspicious subcentimeter nodule left lobe thyroid. This has not increased in size over the interval. 2017 ACR TI-RADS LEVEL: TR-RADS 4 - Moderately Suspicious: Follow if > 1 cm, FNA if > 1.5 cm *Highest TI-RADS level nodule reported
== END | disposition home or self-care (01) ==
LOC: RADUSWWP 16:18
PROVIDERS: ATTEND Family Medicine
DX: E04.1 Nontoxic single thyroid nodule (principal)
CPT/HCPCS: 76536

== ENCOUNTER 2022-08-18 10:21 | Emergency (ER) | payer OTHER ==
[2022-08-18 10:38] VITALS: RESP 18; TEMP 98.2
[2022-08-18] MEDS ORDERED: LOSARTAN 50 MG TAB PO STA (11:00)
--- NOTE | 2022-08-18 11:28 | ED ---
General Adult HPI - General Chief complaint: Dizziness Stated complaint: Light headedness,near syncope Time Seen by Provider: 08/18/22 10:51 Source: patient, RN notes reviewed Mode of arrival: ambulatory Limitations: no limitations - History of Present Illness Initial comments: Patient is a 62-year-old male presents to the emergency room with c omplaints of dizziness in the mornings upon waking for the last 3 days. He states that he was concerned regarding his symptoms as they seem to be getting progressively worse every morning. He denies any associated symptoms with the dizziness. He states that he was previously on blood pressure medication but has not been on any in approximately 2 years. At this time he feels well denying any dizziness or any other symptoms including chest pain, shortness of breath, abdominal pain, nausea, vomiting, headache, blurred or double vision, fevers or chills. He says his past medical history of hypertension which is not currently being treated for he has no other significant past medical history. - Related Data Home Medications Medication Instructions Recorded Confirmed Aspirin EC [Ecotrin Low Dose] 81 mg PO DAILY 07/25/19 08/18/22 Previous Rx's Medication Instructions Recorded Losartan/Hydrochlorothiazide 1 each PO DAILY 30 Days #30 tab 08/18/22 [Losartan-Hctz 100-25 mg Tab] Allergies Allergy/AdvReac Type Severity Reaction Status Date / Time No Known Allergies Allergy Verified 08/18/22 12:43 Review of Systems ROS Statement: Those systems with pertinent positive or pertinent negative responses have been documented in the HPI. ROS Other: All systems not noted in ROS Statement are negative. Past Medical History Past Medical History: Hypertension History of Any Multi-Drug Resistant Organisms: None Reported Past Surgical History: Tonsillectomy Additional Past Surgical History / Comment(s): cyst removal from back Past Psychological History: No Psychological Hx Reported Smoking Status: Current every day smoker Past Alcohol Use History: None Reported Past Drug Use History: Marijuana General Exam General appearance: alert, in no apparent distress Head exam: Present: atraumatic, normocephalic, normal inspection Eye exam: Present: normal appearance, PERRL, EOMI. Absent: scleral icterus, conjunctival injection, nystagmus, periorbital swelling ENT exam: Present: normal exam, mucous membranes moist Neck exam: Present: normal inspection Respiratory exam: Present: normal lung sounds bilaterally. Absent: respiratory distress, wheezes, rales, rhonchi, stridor Cardiovascular Exam: Present: regular rate, normal rhythm, normal heart sounds. Absent: systolic murmur, diastolic murmur, rubs, gallop, clicks GI/Abdominal exam: Present: soft, normal bowel sounds. Absent: distended, tenderness, guarding, rebound, rigid Rectal exam: Present: deferred Extremities exam: Present: normal inspection. Absent: pedal edema, joint sw elling Back exam: Present: normal inspection Neurological exam: Present: alert, oriented X3, CN II-XII intact Psychiatric exam: Present: normal affect, normal mood Skin exam: Present: warm, dry, intact, normal color. Absent: rash Course Vital Signs 08/18/22 08/18/22 08/18/22 10:35 12:21 12:55 Temperature 98.2 F Pulse Rate 70 61 65 Respiratory 18 18 18 Rate Blood Pressure 220/108 210/114 206/113 O2 Sat by Pulse 98 98 98 Oximetry 08/18/22 08/18/22 08/18/22 13:30 14:00 14:49 Temperature Pulse Rate 54 L 58 L 60 Respiratory 18 18 18 Rate Blood Pressure 186/104 181/105 202/102 O2 Sat by Pulse 97 97 98 Oximetry 08/18/22 15:18 Temperature Pulse Rate 60 Respiratory 18 Rate Blood Pressure 188/110 O2 Sat by Pulse 97 Oximetry Medical Decision Making - Medical Decision Making 62-year-old male presents to the emergency room with morning dizziness and hypertension. No other associated symptoms. No dizziness this time. Given elevated blood pressure will obtain CBC, CMP along with troponin and EKG. Will obtain previous medication history and start on oral medication. Previous oral medications losartan and hydrochlorothiazide. Will give oral losartan. EKG shows normal sinus rhythm. Labs stable without anomalies. No indication for further diagnostic imaging. Blood pressure continues to be elevated after losartan will give IV labetalol and monitor response. EP continues to be elevated at 180s over 110s despite oral losartan and labetalol IV. Will give clonidine orally and monitor response. Slight improv ement in blood pressure with oral clonidine. Will discharge home with resumption of previous blood pressure medication and dietary education. Encourage daily blood pressure monitoring and follow-up with primary care provider. Case discussed with Dr. Cano - Lab Data Result diagrams: 08/18/22 11:11 08/18/22 11:11 Lab Results 08/18/22 08/18/22 08/18/22 Range/Units 11:11 11:11 11:11 WBC 7.2 (3.8-10.6) k/uL RBC 4.99 (4.30-5.90) m/uL Hgb 15.2 (13.0-17.5) gm/dL Hct 44.2 (39.0-53.0) % MCV 88.5 (80.0-100.0) fL MCH 30.4 (25.0-35.0) pg MCHC 34.4 (31.0-37.0) g/dL RDW 13.2 (11.5-15.5) % Plt Count 229 (150-450) k/uL MPV 8.2 Neutrophils % 72 % Lymphocytes % 18 % Monocytes % 6 % Eosinophils % 1 % Basophils % 1 % Neutrophils # 5.2 (1.3-7.7) k/uL Lymphocytes # 1.3 (1.0-4.8) k/uL Monocytes # 0.5 (0-1.0) k/uL Eosinophils # 0.1 (0-0.7) k/uL Basophils # 0.1 (0-0.2) k/uL PT 9.9 (9.0-12.0) sec INR 0.9 (<1.2) APTT 25.3 (22.0-30.0) sec Sodium 138 (137-145) mmol/L Potassium 4.5 (3.5-5.1) mmol/L Chloride 103 (98-107) mmol/L Carbon Dioxide 26 (22-30) mmol/L Anion Gap 9 mmol/L BUN 16 (9-20) mg/dL Creatinine 0.89 (0.66-1.25) mg/dL Est GFR (CKD-EPI)AfAm >90 (>60 ml/min/1.73 sqM) Est GFR (CKD-EPI)NonAf >90 (>60 ml/min/1.73 sqM) Glucose 108 H (74-99) mg/dL Calcium 8.7 (8.4-10.2) mg/dL Magnesium 1.9 (1.6-2.3) mg/dL Total Bilirubin 0.8 (0.2-1.3) mg/dL AST 35 (17-59) U/L ALT 34 (4-49) U/L Alkaline Phosphatase 114 (38-126) U/L Troponin I (0.000-0.034) ng/mL Total Protein 6.5 (6.3-8.2) g/dL Albumin 4.3 (3.5-5.0) g/dL 08/18/22 Range/Units 11:11 WBC (3.8-10.6) k/uL RBC (4.30-5.90) m/uL Hgb (13.0-17.5) gm/dL Hct (39.0-53.0) % MCV (80.0-100.0) fL MCH (25.0-35.0) pg MCHC (31.0-37.0) g/dL RDW (11.5-15.5) % Plt Count (150-450) k/uL MPV Neutrophils % % Lymphocytes % % Monocytes % % Eosinophils % % Basophils % % Neutrophils # (1.3-7.7) k/uL Lymphocytes # (1.0-4.8) k/uL Monocytes # (0-1.0) k/uL Eosinophils # (0-0.7) k/uL Basophils # (0-0.2) k/uL PT (9.0-12.0) sec INR (<1.2) APTT (22.0-30.0) sec Sodium (137-145) mmol/L Potassium (3.5-5.1) mmol/L Chloride (98-107) mmol/L Carbon Dioxide (22-30) mmol/L Anion Gap mmol/L BUN (9-20) mg/dL Creatinine (0.66-1.25) mg/dL Est GFR (CKD-EPI)AfAm (>60 ml/min/1.73 sqM) Est GFR (CKD-EPI)NonAf (>60 ml/min/1.73 sqM) Glucose (74-99) mg/dL Calcium (8.4-10.2) mg/dL Magnesium (1.6-2.3) mg/dL Total Bilirubin (0.2-1.3) mg/dL AST (17-59) U/L ALT (4-49) U/L Alkaline Phosphatase (38-126) U/L Troponin I <0.012 (0.000-0.034) ng/mL Total Protein (6.3-8.2) g/dL Albumin (3.5-5.0) g/dL - EKG Data EKG Comments: Sinus rhythm, ventricular rate 73 bpm, OK interval 136 ms, QRS duration 105 ms, QT/QTC 38/425 ms, PRT axes 31, 61, 52 Disposition Clinical Impression: Hypertension Narrative: Please take your blood pressure medication as prescribed. Follow a low-salt diet. Avoid alcohol, NSAIDs and decongestants. Please follow-up with your primary care provider. Recommend monitoring your blood pressure at least once a day with an [id number] blood pressure cuff and avoid alcohol intake. Please return to the Emergency Department if symptoms worsen or any other concerns. Disposition: HOME SELF-CARE Instructions (If sedation given, give patient instructions): Hypertension (ED) Prescriptions: Losartan/Hydrochlorothiazide [Losartan-Hctz 100-25 mg Tab] 1 each PO DAILY 30 Days #30 tab Is patient prescribed a controlled substance at d/c from ED?: No Referrals: None,Stated [Primary Care Provider] - 1-2 days Time of Disposition: 15:21
[2022-08-18 11:33] LABS: Basophils # (A) 0.1 k/uL (0-0.2); Basophils % (A) 1 %; Eosinophils # (A) 0.1 k/uL (0-0.7); Eosinophils % (A) 1 %; HCT 44.2 % (39.0-53.0); HGB 15.2 gm/dL (13.0-17.5); Lymphocytes # (A) 1.3 k/uL (1.0-4.8); Lymphocytes % (A) 18 %; MCH 30.4 pg (25.0-35.0); MCHC 34.4 g/dL (31.0-37.0); MCV 88.5 fL (80.0-100.0); Mean Platelet Volume 8.2; Monocytes # (A) 0.5 k/uL (0-1.0); Monocytes % (A) 6 %; Neutrophils # (A) 5.2 k/uL (1.3-7.7); Neutrophils % (A) 72 %; Platelet Count 229 k/uL (150-450); RBC 4.99 m/uL (4.30-5.90); RDW 13.2 % (11.5-15.5); WBC 7.2 k/uL (3.8-10.6)
[2022-08-18 11:36] LABS: ALT 34 U/L (4-49); AST 35 U/L (17-59); African American GFR (CKD) >90 (>60 ml/min/1.73 sqM); Albumin 4.3 g/dL (3.5-5.0); Alkaline Phosphatase 114 U/L (38-126); Anion Gap 9 mmol/L; Blood Urea Nitrogen 16 mg/dL (9-20); Calcium 8.7 mg/dL (8.4-10.2); Carbon Dioxide 26 mmol/L (22-30); Chloride 103 mmol/L (98-107); Glucose 108 mg/dL (74-99); Magnesium 1.9 mg/dL (1.6-2.3); Non-African American GFR(CKD) >90 (>60 ml/min/1.73 sqM); Potassium 4.5 mmol/L (3.5-5.1); Sodium 138 mmol/L (137-145); Total Bilirubin 0.8 mg/dL (0.2-1.3); Total Protein 6.5 g/dL (6.3-8.2)
[2022-08-18 11:51] LABS: INR 0.9 (<1.2); Partial Thromboplastin Time 25.3 sec (22.0-30.0); Prothrombin Time 9.9 sec (9.0-12.0)
[2022-08-18] MEDS ORDERED: LABETALOL 5 MG/ML VIAL MDV IVP STA (12:45)
[2022-08-18] MEDS ORDERED: cloNIDine HCL 0.1 MG TAB PO STA (13:49)
[2022-08-18 14:55] VITALS: PULSE 60
[2022-08-18 15:18] VITALS: BP 188/110
== END 2022-08-18 15:54 | disposition home or self-care (01) ==
LOC: EC 10:21
DX: I10 Essential (primary) hypertension (principal); F17.200 Nicotine dependence, unspecified, uncomplicated
CPT/HCPCS: 36415; 80053; 83735; 84484; 85025; 85610; 85730; 93005

== ENCOUNTER → 2022-11-27 | Outpatient (CLI) | payer OTHER ==
--- NOTE | 2022-11-27 14:05 | CT ---
EXAMINATION TYPE: CT angio head neck DATE OF EXAM: 11/27/2022 HISTORY: bilateral carotid stenosis COMPARISON: None CT DLP: 483 mGycm. Automated Exposure Control for Dose Reduction was Utilized. TECHNIQUE: CTA scan of the head and neck is performed with IV Contrast, patient injected with 65cc m L of Isovue 370, axial images are obtained, coronal and sagittal reformatted images are reviewed. 3D reconstructed images are created on an independent workstation and reviewed. 3-D postprocessing was p erformed FINDINGS: The brachiocephalic origins are widely patent without significant stenosis or significant plaque form ation. There is mild eccentric calcified plaque in the carotid bifurcations and proximal internal carotid ar teries but there is no significant common or internal carotid artery stenosis within the neck. The vertebral arteries are patent and there is no stenosis of the vertebral artery origins. The right vertebral artery is slightly dominant to the left. Intracranially, there is no significant stenosis. There are no segmental occlusions. There are no siz able aneurysm sacs or vascular malformations. Impression: 1. No significant stenosis in the common or internal carotid arteries within the neck. Minimal eccent cheli calcified plaque formation. 2. No significant stenosis, segmental occlusion, aneurysm sac or vascular malformation intracranially . NASCET criteria was used in interpretation of this exam?
== END | disposition home or self-care (01) ==
LOC: RADCTMAIN 11:06
PROVIDERS: ATTEND Family Medicine
DX: I65.23 Occlusion and stenosis of bilateral carotid arteries (principal)
CPT/HCPCS: 70496; 70498; Q9967

== ENCOUNTER 2022-12-20 11:37 | Emergency (ER) | payer OTHER ==
--- NOTE | 2022-12-20 13:01 | ED ---
General Adult HPI - General Chief complaint: Recheck/Abnormal Lab/Rx Stated complaint: "not feeling well" Time Seen by Provider: 12/20/22 12:43 Source: patient, RN notes reviewed Mode of arrival: ambulatory Limitations: no limitations - History of Present Illness Initial comments: 62 year old male with a past medical history of HTN presents to the emergency department with a medication problem. Patient reports that he is a patient of Dr. Obregon'tena who prescribed him Losartan, Hydralazine, Levothyroxine, and Rosuvastatin 6 weeks ago. He reports that everyday he "hasn't felt right." Today he admits to worsening feelings of dizziness and lig htheadedness to the point where he felt he was going to "pass out." He also complains of accompanying leg weakness and myalgias. He denies fever, chills, headache, vision changes, chest pain, palpitations, shortness of breath, abdominal pain, nausea, vomiting, diarrhea. He denies recent falls or trauma. He denies ever taking Rosuvastatin although he picked up the precription. - Related Data Home Medications Medication Instructions Recorded Confirmed Levothyroxine Sodium [Synthroid] 25 mcg PO DAILY 12/20/22 12/20/22 Losartan Potassium 100 mg PO DAILY 12/20/22 12/20/22 hydrALAZINE HCL [Apresoline] 25 mg PO TID 12/20/22 12/20/22 Allergies Allergy/AdvReac Type Severity Reaction Status Date / Time No Known Allergies Allergy Verified 12/20/22 14:31 Review of Systems ROS Statement: Those systems with pertinent positive or pertinent negative responses have been documented in the HPI. ROS Other: All systems not noted in ROS Statement are negative. Past Medical History Past Medical History: Hyperlipidemia, Hypertension, Thyroid Disorder History of Any Multi-Drug Resistant Organisms: None Reported Past Surgical History: Tonsillectomy Additional Past Surgical History / Comment(s): cyst removal from back Past Psychological History: No Psychological Hx Reported Smoking Status: Current every day smoker Past Alcohol Use History: None Reported Past Drug Use History: Marijuana General Exam Limitations: no limitations General appearance: alert, in no apparent distress Head exam: Present: atraumatic, normocephalic, normal inspection Eye exam: Present: normal appearance, PERRL, EOMI. Absent: scleral icterus, conjunctival injection, periorbital swelling ENT exam: Present: normal exam, mucous membranes moist Neck exam: Present: normal inspection. Absent: tenderness, meningismus, lymphadenopathy Respiratory exam: Present: normal lung sounds bilaterally. Absent: respiratory distress, wheezes, rales, rhonchi, stridor Cardiovascular Exam: Present: regular rate, normal rhythm, normal heart sounds. Absent: systolic murmur, diastolic murmur, rubs, gallop, clicks GI/Abdominal exam: Present: soft, normal bowel sounds. Absent: distended, tenderness, guarding, rebound, rigid Extremities exam: Present: normal inspection, full ROM, normal capillary refill. Absent: tenderness, pedal edema, joint swelling, calf tenderness Back exam: Present: normal inspection Neurological exam: Present: alert, oriented X3, CN II-XII intact Psychiatric exam: Present: normal affect, normal mood Skin exam: Present: warm, dry, intact, normal color. 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 Rate 53bpm, sinus bradycardia. MI 156, QRS 115, QT/Qtc 450/432 Medical Decision Making - Medical Decision Making Was pt. sent in by a medical professional or institution (, PA, SEAL M[employer]ER, urgent care, hospital, or long term...) When possible be specific @ -[No] Did you speak to anyone other than the patient for history (EMS, parent, family, police, friend...)? What history was obtained from this source @ -[No] Did you review nursing and triage notes (agree or disagree)? Why? @ -[I reviewed and agree with nursing and triage notes] Were old charts reviewed (outside hosp., previous admission, EMS record, old EKG, old radiological studies, urgent care reports/EKG's, long term records)? Report findings @ -[No old charts were reviewed] Differential Diagnosis (chest pain, altered mental status, abdominal pain women, abdominal pain men, vaginal bleeding, weakness, fever, dyspnea, syncope, headache, dizziness, GI bleed, back pain, seizure, CVA, palpatations, mental health)? @ -[not applicable] EKG interpreted by me (3pts min.). @ -[As above] X-rays interpreted by me (1pt min.). @ -Respiratory negative for any evidence of acute pulmonary process or evidence of consolidation CT interpreted by me (1pt min.). @ -[None done] U/S interpreted by me (1pt. min.). @ -[None done] What testing was considered but not performed or refused? (CT, X-rays, U/S, labs)? Why? @ -[None] What meds were considered but not given or refused? Why? @ -[None] Did you discuss the management of the patient with other professionals (professionals i.e. , PA, SE[employer] M[employer]ER, lab, RT, psych nurse, case management social worker, chemistry technical officer, teacher, chief legal officer, manager of case)? Give summary @ -[No] Was smoking cessation discussed for >3mins.? @ -[No] Was critical care preformed (if so, how long)? @ -[No] Were there social determinants of health that impacted care today? How? (Homelessness, low income, unemployed, alcoholism, drug addiction, transportation, low edu. Level, literacy, decrease access to med. care, penitentiary, rehab)? @ -[No] Was there de-escalation of care discussed even if they declined (Discuss DNR or withdrawal of care, Hospice)? DNR status @ -[No] What co-morbidities impacted this encounter? (DM, HTN, Smoking, COPD, CAD, Cancer, CVA, ARF, Chemo, Hep., AIDS, mental health diagnosis, sleep apnea, morbid obesity)? @ -[None] Was patient admitted / discharged? Hospital course, mention meds given and route, prescriptions, significant lab abnormalities, going to OR and other pertinent info. @ -62 -year-old female presents to the emergency department with lightheadedness. Patient had thorough history and physical performed, physical exam is essentially unremarkable, heart rate regular rate and rhythm lungs clear to auscultation bilaterally abdomen soft and non-tender. Patient had lab work and imaging performed which was essentially unremarkable. Patient was given 1 L of IV fluids for symptomatic relief while in the ED. I discussed the results in detail with the patient, all questions and concerns were addressed. Patient was encouraged to follow up with PCP in 1-2 days.. Patient was discharged in stable condition. I discussed the case with Dr. [facility] who agrees with plan of care. Undiagnosed new problem with uncertain prognosis? @ -[No] Drug Therapy requiring intensive monitoring for toxicity (Heparin, Nitro, Insulin, Cardizem)? @ -[No] Were any procedures done? @ -[No] Diagnosis/symptom? @ -lightheadedness - hx of HTN Acute, or Chronic, or Acute on Chronic? @ -acute Uncomplicated (without systemic symptoms) or Complicated (systemic symptoms)? @ -uncomplicated Side effects of treatment? @ -[No] Exacerbation, Progression, or Severe Exacerbation? @ -[No] Poses a threat to life or bodily function? How? (Chest pain, [place], [place], pneumonia, PE, COPD, DKA, ARF, appy, cholecystitis, CVA, Diverticulitis, Homicidal, Suicid al, threat to staff... and all critical care pts) @ -[No] - Lab Data Result diagrams: 12/20/22 13:22 12/20/22 13:22 Lab Results 12/20/22 12/20/22 12/20/22 Range/Units 13:22 13:22 13:22 WBC 8.8 (3.8-10.6) k/uL RBC 4.54 (4.30-5.90) m/uL Hgb 14.0 (13.0-17.5) gm/dL Hct 39.8 (39.0-53.0) % MCV 87.6 (80.0-100.0) fL MCH 30.8 (25.0-35.0) pg MCHC 35.1 (31.0-37.0) g/dL RDW 13.0 (11.5-15.5) % Plt Count 230 (150-450) k/uL MPV 7.2 Neutrophils % 78 % Lymphocytes % 13 % Monocytes % 7 % Eosinophils % 1 % Basophils % 1 % Neutrophils # 6.8 (1.3-7.7) k/uL Lymphocytes # 1.2 (1.0-4.8) k/uL Monocytes # 0.6 (0-1.0) k/uL Eosinophils # 0.1 (0-0.7) k/uL Basophils # 0.1 (0-0.2) k/uL PT (9.0-12.0) sec INR (<1.2) D-Dimer (<0.60) mg/L FEU Sodium 137 (137-145) mmol/L Potassium 4.0 (3.5-5.1) mmol/L Chloride 100 (98-107) mmol/L Carbon Dioxide 32 H (22-30) mmol/L Anion Gap 5 mmol/L BUN 23 H (9-20) mg/dL Creatinine 0.91 (0.66-1.25) mg/dL Est GFR (CKD-EPI)AfAm >90 (>60 ml/min/1.73 sqM) Est GFR (CKD-EPI)NonAf 89 (>60 ml/min/1.73 sqM) Glucose 98 (74-99) mg/dL Calcium 9.7 (8.4-10.2) mg/dL Troponin I <0.012 (0.000-0.034) ng/mL Urine Color Urine Appearance (Clear) Urine pH (5.0-8.0) Ur Specific [place] (1.001-1.035) Urine Protein (Negative) Urine Glucose (UA) (Negative) Urine Ketones (Negative) Urine Blood (Negative) Urine Nitrite (Negative) Urine Bilirubin (Negative) Urine Urobilinogen (<2.0) mg/dL Ur Leukocyte Esterase (Negative) 12/20/22 12/20/22 Range/Units 14:37 15:01 WBC (3.8-10.6) k/uL RBC (4.30-5.90) m/uL Hgb (13.0-17.5) gm/dL Hct (39.0-53.0) % MCV (80.0-100.0) fL MCH (25.0-35.0) pg MCHC (31.0-37.0) g/dL RDW (11.5-15.5) % Plt Count (150-450) k/uL MPV Neutrophils % % Lymphocytes % % Monocytes % % Eosinophils % % Basophils % % Neutrophils # (1.3-7.7) k/uL Lymphocytes # (1.0-4.8) k/uL Monocytes # (0-1.0) k/uL Eosinophils # (0-0.7) k/uL Basophils # (0-0.2) k/uL PT 10.0 (9.0-12.0) sec INR 0.9 (<1.2) D-Dimer 0.50 (<0.60) mg/L FEU Sodium (137-145) mmol/L Potassium (3.5-5.1) mmol/L Chloride (98-107) mmol/L Carbon Dioxide (22-30) mmol/L Anion Gap mmol/L BUN (9-20) mg/dL Creatinine (0.66-1.25) mg/dL Est GFR (CKD-EPI)AfAm (>60 ml/min/1.73 sqM) Est GFR (CKD-EPI)NonAf (>60 ml/min/1.73 sqM) Glucose (74-99) mg/dL Calcium (8.4-10.2) mg/dL Troponin I (0.000-0.034) ng/mL Urine Color Colorless Urine Appearance Clear (Clear) Urine pH 5.5 (5.0-8.0) Ur Specific [place] 1.006 (1.001-1.035) Urine Protein Negative (Negative) Urine Glucose (UA) Negative (Negative) Urine Ketones Negative (Negative) Urine Blood Negative (Negative) Urine Nitrite Negative (Negative) Urine Bilirubin Negative (Negative) Urine Urobilinogen <2.0 (<2.0) mg/dL Ur Leukocyte Esterase Negative (Negative) Disposition Clinical Impression: Lightheadedness Disposition: HOME SELF-CARE Condition: Stable Instructions (If sedation given, give patient instructions): How to Take a Blood Pressure (ED), Chronic Hypertension (ED) Additional Instructions: These return to the nearest emergency department if symptoms worsen or persist. Is patient prescribed a controlled substance at d/c from ED?: No Referrals: Jonathon Obregon MD [Primary Care Provider] - 1-2 days Time of Disposition: 15:52
[2022-12-20] MEDS ORDERED: SODIUM CHLORIDE 0.9% 500 ML 500 ML IV ONE (13:21)
[2022-12-20 13:45] LABS: African American GFR (CKD) >90 (>60 ml/min/1.73 sqM); Anion Gap 5 mmol/L; Blood Urea Nitrogen 23 mg/dL (9-20); Calcium 9.7 mg/dL (8.4-10.2); Carbon Dioxide 32 mmol/L (22-30); Chloride 100 mmol/L (98-107); Glucose 98 mg/dL (74-99); Non-African American GFR(CKD) 89 (>60 ml/min/1.73 sqM); Sodium 137 mmol/L (137-145)
[2022-12-20 14:06] LABS: Basophils # (A) 0.1 k/uL (0-0.2); Basophils % (A) 1 %; Eosinophils # (A) 0.1 k/uL (0-0.7); Eosinophils % (A) 1 %; HCT 39.8 % (39.0-53.0); Lymphocytes # (A) 1.2 k/uL (1.0-4.8); Lymphocytes % (A) 13 %; MCH 30.8 pg (25.0-35.0); MCHC 35.1 g/dL (31.0-37.0); MCV 87.6 fL (80.0-100.0); Mean Platelet Volume 7.2; Monocytes # (A) 0.6 k/uL (0-1.0); Monocytes % (A) 7 %; Neutrophils # (A) 6.8 k/uL (1.3-7.7); Neutrophils % (A) 78 %; Platelet Count 230 k/uL (150-450); RBC 4.54 m/uL (4.30-5.90); WBC 8.8 k/uL (3.8-10.6)
[2022-12-20 14:42] VITALS: TEMP 97.7
[2022-12-20 15:03] VITALS: RESP 17
[2022-12-20 15:04] LABS: Appearance,Urine Clear (Clear); Bilirubin,Urine Negative (Negative); Blood,Urine Negative (Negative); Color,Urine Colorless; Glucose,Urine (UA) Negative (Negative); Ketones,Urine Negative (Negative); Leukocyte Esterase,Urine Negative (Negative); Nitrite,Urine Negative (Negative); PH, Urine 5.5 (5.0-8.0); Protein,Urine Negative (Negative); Specific Gravity,Urine 1.006 (1.001-1.035); Urobilinogen,Urine <2.0 mg/dL (<2.0)
--- NOTE | 2022-12-20 15:17 | XR ---
EXAMINATION TYPE: XR chest 2V DATE OF EXAM: 12/20/2022 3:07 PM COMPARISON: Chest radiographs from 09/21/2019 TECHNIQUE: XR chest 2V Frontal and lateral views of the chest. CLINICAL INDICATION:Male, 62 years old with history of lightheadedness; FINDINGS: Lungs/Pleura: There is no evidence of pleural effusion, focal consolidation, or pneumothorax. Pulmonary vascularity: Unremarkable. Heart/mediastinum: Cardiomediastinal silhouette is unremarkable. Musculoskeletal: No acute osseous pathology. IMPRESSION: No acute cardiopulmonary disease/process.
[2022-12-20 15:50] LABS: INR 0.9 (<1.2)
[2022-12-20 16:14] VITALS: BP 166/85; PULSE 56
== END 2022-12-20 16:14 | disposition home or self-care (01) ==
LOC: EC 11:37
DX: R42 Dizziness and giddiness (principal); I10 Essential (primary) hypertension; E78.5 Hyperlipidemia, unspecified; E07.9 Disorder of thyroid, unspecified; F17.200 Nicotine dependence, unspecified, uncomplicated; F12.90 Cannabis use, unspecified, uncomplicated; Z79.899 Other long term (current) drug therapy; Z79.890 Hormone replacement therapy
CPT/HCPCS: 36415; 71046; 80048; 81003; 84484; 85025; 85379; 85610; 93005; 96360; 99284

== ENCOUNTER 2022-12-23 17:03 | Emergency (ER) | payer OTHER ==
[2022-12-23 17:12] VITALS: TEMP 97.9
[2022-12-23] MEDS ORDERED: LABETALOL 5 MG/ML VIAL MDV IVP STA (18:17)
[2022-12-23 18:42] LABS: Basophils # (A) 0.1 k/uL (0-0.2); Basophils % (A) 1 %; Eosinophils # (A) 0.1 k/uL (0-0.7); Eosinophils % (A) 1 %; HCT 40.9 % (39.0-53.0); Lymphocytes % (A) 10 %; MCH 29.8 pg (25.0-35.0); MCHC 34.2 g/dL (31.0-37.0); MCV 87.3 fL (80.0-100.0); Mean Platelet Volume 7.1; Monocytes # (A) 0.5 k/uL (0-1.0); Monocytes % (A) 5 %; Neutrophils # (A) 8.4 k/uL (1.3-7.7); Neutrophils % (A) 83 %; Platelet Count 238 k/uL (150-450); RBC 4.69 m/uL (4.30-5.90); RDW 12.6 % (11.5-15.5); WBC 10.2 k/uL (3.8-10.6)
[2022-12-23 18:55] LABS: ALT 36 U/L (4-49); AST 31 U/L (17-59); African American GFR (CKD) >90 (>60 ml/min/1.73 sqM); Albumin 4.4 g/dL (3.5-5.0); Alkaline Phosphatase 104 U/L (38-126); Anion Gap 6 mmol/L; Blood Urea Nitrogen 20 mg/dL (9-20); Carbon Dioxide 30 mmol/L (22-30); Chloride 103 mmol/L (98-107); Glucose 105 mg/dL (74-99); Non-African American GFR(CKD) >90 (>60 ml/min/1.73 sqM); Potassium 4.3 mmol/L (3.5-5.1); Sodium 139 mmol/L (137-145); Total Bilirubin 0.6 mg/dL (0.2-1.3); Total Protein 6.8 g/dL (6.3-8.2)
[2022-12-23 19:31] VITALS: RESP 16
--- NOTE | 2022-12-23 19:40 | ED ---
General Adult HPI - General Chief complaint: Recheck/Abnormal Lab/Rx Stated complaint: Hypertension Time Seen by Provider: 12/23/22 17:55 Source: patient, RN notes reviewed, old records reviewed Mode of arrival: ambulatory Limitations: no limitations - History of Present Illness Initial comments: This is a 62-year-old male who presents emergency Department stating that his blood pressure was high today. Patient states he has no symptoms he just notic ed it being elevated and he ran out of his atenolol on Wednesday. Appointment with Dr. Umaña and tomorrow. Patient denies chest pain difficulty breathing shortest breath per patient denies any palpitations. Patient denies any fever chills or cough per patient denies abdominal pain patient denies any nausea or vomiting. Patient denies headache patient denies any numbness weakness per patient denies any blurred vision. Patient states she just noted his blood pressure to be elevated home and he wanted to come in and get to come down before he saw Dr. Umaña and tomorrow - Related Data Home Medications Medication Instructions Recorded Confirmed Levothyroxine Sodium [Synthroid] 25 mcg PO DAILY 12/20/22 12/20/22 Losartan Potassium 100 mg PO DAILY 12/20/22 12/20/22 hydrALAZINE HCL [Apresoline] 25 mg PO TID 12/20/22 12/20/22 Allergies Allergy/AdvReac Type Severity Reaction Status Date / Time No Known Allergies Allergy Verified 12/23/22 17:12 Review of Systems ROS Statement: Those systems with pertinent positive or pertinent negative responses have been documented in the HPI. ROS Other: All systems not noted in ROS Statement are negative. Past Medical History Past Medical History: Hyperlipidemia, Hypertension, Thyroid Disorder History of Any Multi-Drug Resistant Organisms: None Reported Past Surgical History: Tonsillectomy Additional Past Surgical History / Comment(s): cyst removal from back Past Psychological History: No Psychological Hx Reported Smoking Status: Current every day smoker Past Alcohol Use History: None Reported Past Drug Use History: Marijuana General Exam - General Exam Comments Initial Comments: GENERAL: Patient is well-developed and well-nourished. Patient is nontoxic and well- hydrated and is in no acute distress. ENT: Neck is soft and supple. No significant lymphadenopathy is noted. Oropharynx is clear. Moist mucous membranes. Neck has full range of motion without eliciting any pain. EYES: The sclera were anicteric and conjunctiva were pink and moist. Extraocular movements were intact and pupils were equal round and reactive to light. Eyelids were unremarkable. PULMONARY: Unlabored respirations. Good breath sounds bilaterally. No audible rales rhonchi or wheezing was noted. CARDIOVASCULAR: There is a regular rate and rhythm without any murmurs gallops or rubs. ABDOMEN: Soft and nontender with normal bowel sounds. No palpable organomegaly was noted. There is no palpable pulsatile mass. SKIN: Skin is clear with no lesions or rashes and otherwise unremarkable. NEUROLOGIC: Patient is alert and oriented x3. Cranial nerves II through XII are grossly intact. Motor and sensory are also intact. Normal speech, volume and content. Symmetrical smile. MUSCULOSKELETAL: Normal extremities with adequate strength and full range of motion. No lower extremity swelling or edema. No calf tenderness. LYMPHATICS: No significant lymphadenopathy is noted PSYCHIATRIC: Normal psychiatric evaluation. Limitations: no limitations Course Vital Signs 12/23/22 12/23/22 17:10 19:12 Temperature 97.9 F Pulse Rate 81 78 Respiratory 18 16 Rate Blood Pressure 192/92 156/96 O2 Sat by Pulse 100 95 Oximetry Medical Decision Making - Medical Decision Making EKG was interpreted by myself shows a sinus rhythm at 70 bpm NV interval 131 QRS is 190 QT intervals is 395 QTC is 416. Patient's EKG shows no ST segment outpatient or depression. Was pt. sent in by a medical professional or institution (GUDELIA Lozoya, CAREER TECHNICAL COUNSELOR, urgent care, hospital, or long-term...) When possible be specific @ -No Did you speak to anyone other than the patient for history (EMS, parent, family, police, friend...)? What history was obtained from this source @ -No Did you review nursing and triage notes (agree or disagree)? Why? @ -I reviewed and agree with nursing and triage notes Were old charts reviewed (outside hosp., previous admission, EMS record, old EKG, old radiological studies, urgent care reports/EKG's, long-term records)? Report findings @ -I compared the EKG to prior EKGs Differential Diagnosis (chest pain, altered mental status, abdominal pain women, abdominal pain men, vaginal bleeding, weakness, fever, dyspnea, syncope, headache, dizziness, GI bleed, back pain, seizure, CVA, palpatations, mental health)? @ -not applicable EKG interpreted by me (3pts min.). @ -As above X-rays interpreted by me (1pt min.). @ -None done CT interpreted by me (1pt min.). @ -None done U/S interpreted by me (1pt. min.). @ -None done What testing was considered but not performed or refused? (CT, X-rays, U/S, labs)? Why? @ -None What meds were considered but not given or refused? Why? @ -None Did you discuss the management of the patient with other professionals (professionals i.e. Dr., PA, CAREER TECHNICAL COUNSELOR, lab, RT, psych nurse, director of social services, women nurse, teacher, court registry officer, correctional case records supervisor)? Give summary @ -No Was smoking cessation discussed for >3mins.? @ -No Was critical care preformed (if so, how long)? @ -No Were there social determinants of health that impacted care today? How? (Homelessness, low income, unemployed, alcoholism, drug addiction, transportation, low edu. Level, literacy, decrease access to med. care, [place] [facility], re hab)? @ -No Was there de-escalation of care discussed even if they declined (Discuss DNR or withdrawal of care, Hospice)? DNR status @ -No What co-morbidities impacted this encounter? (DM, HTN, Smoking, COPD, CAD, Cancer, CVA, ARF, Chemo, Hep., AIDS, mental health diagnosis, sleep apnea, morbid obesity)? @ -None Was patient admitted / discharged? Hospital course, mention meds given and route, prescriptions, significant lab abnormalities, going to OR and other pertinent info. @ -Patient was given labetalol emergency department blood pressure came down nicely. Patient remained asymptomatic throughout his whole stay. Patient states she has appointment tomorrow morning with Dr. Obregon. Undiagnosed new problem with uncertain prognosis? @ -No Drug Therapy requiring intensive monitoring for toxicity (Heparin, Nitro, Insulin, Cardizem)? @ -No Were any procedures done? @ -No Diagnosis/symptom? @ -Hypertensive urgency Acute, or Chronic, or Acute on Chronic? @ -Acute Uncomplicated (without systemic symptoUncom plicatedcated (systemic symptoms)? @ -Uncomplicated Side effects of treatment? @ -No Exacerbation, Progression, or Severe Exacerbation? @ -No Poses a threat to life or bodily function? How? (Chest pain, USA, VT, pneumonia, PE, COPD, DKA, ARF, appy, cholecystitis, CVA, Diverticulitis, Homicidal, Suicidal, threat to staff... and all critical care pts) @ -No - Lab Data Result diagrams: 12/23/22 18:30 12/23/22 18:30 Lab Results 12/23/22 12/23/22 12/23/22 Range/Units 18:30 18:30 18:30 WBC 10.2 (3.8-10.6) k/uL RBC 4.69 (4.30-5.90) m/uL Hgb 14.0 (13.0-17.5) gm/dL Hct 40.9 (39.0-53.0) % MCV 87.3 (80.0-100.0) fL MCH 29.8 (25.0-35.0) pg MCHC 34.2 (31.0-37.0) g/dL RDW 12.6 (11.5-15.5) % Plt Count 238 (150-450) k/uL MPV 7.1 Neutrophils % 83 % Lymphocytes % 10 % Monocytes % 5 % Eosinophils % 1 % Basophils % 1 % Neutrophils # 8.4 H (1.3-7.7) k/uL Lymphocytes # 1.0 (1.0-4.8) k/uL Monocytes # 0.5 (0-1.0) k/uL Eosinophils # 0.1 (0-0.7) k/uL Basophils # 0.1 (0-0.2) k/uL Sodium 139 (137-145) mmol/L Potassium 4.3 (3.5-5.1) mmol/L Chloride 103 (98-107) mmol/L Carbon Dioxide 30 (22-30) mmol/L Anion Gap 6 mmol/L BUN 20 (9-20) mg/dL Creatinine 0.83 (0.66-1.25) mg/dL Est GFR (CKD-EPI)AfAm >90 (>60 ml/min/1.73 sqM) Est GFR (CKD-EPI)NonAf >90 (>60 ml/min/1.73 sqM) Glucose 105 H (74-99) mg/dL Calcium 9.0 (8.4-10.2) mg/dL Total Bilirubin 0.6 (0.2-1.3) mg/dL AST 31 (17-59) U/L ALT 36 (4-49) U/L Alkaline Phosphatase 104 (38-126) U/L Troponin I <0.012 (0.000-0.034) ng/mL Total Protein 6.8 (6.3-8.2) g/dL Albumin 4.4 (3.5-5.0) g/dL Disposition Clinical Impression: Hypertensive urgency Disposition: HOME SELF-CARE Condition: Good Instructions (If sedation given, give patient instructions): Hypertension (ED) Is patient prescribed a controlled substance at d/c from ED?: No Referrals: Jonathon Obregon MD [Primary Care Provider] - 1-2 days Time of Disposition: 19:48
[2022-12-23 20:43] VITALS: BP 160/90; PULSE 67
== END 2022-12-23 20:05 | disposition home or self-care (01) ==
LOC: EC 17:03
DX: I16.0 Hypertensive urgency (principal); I10 Essential (primary) hypertension; E07.9 Disorder of thyroid, unspecified; F17.200 Nicotine dependence, unspecified, uncomplicated; F12.90 Cannabis use, unspecified, uncomplicated; Z79.890 Hormone replacement therapy; Z79.899 Other long term (current) drug therapy
CPT/HCPCS: 36415; 80053; 84484; 85025; 93005; 96374; 99284